=== PATIENT | male | born 1950 | race Caucasian/White ===

== ENCOUNTER 2016-10-03 15:53 | Inpatient (IN) | payer MEDICARE, OTHER ==
[~2016-10-03] VITALS: Ht 175.3 cm; Wt 90.4 kg
[~2016-10-03 15:53] MED LIST: ASPI-515 PO; ATOR20TA PO; ATOR80TA75 PO; IRBE300T16 PO; ISOS30TA8 PO; METF500T4 PO; METO25TA35 PO; PSEU120T44 PO; TICA90TA PO
[2016-10-03] MEDS ORDERED: ASPIRIN 81 MG TABLET CHEW PO ONE (16:30)
[2016-10-03] MEDS ORDERED: SODIUM CHLORIDE FLUSH 10ML SYR IVF ONE (17:00)
[2016-10-03 17:03] LABS: BLOOD UREA NITROGEN 14 mg/dL (7-18)
[2016-10-03 17:10] LABS: ASPARTATE AMINO TRANSFERASE 18 U/L (15-37)
[2016-10-03 17:11] LABS: IS PT STATUS REG ER OR PRE ER? YES
[2016-10-03] MEDS ORDERED: ASPIRIN 81 MG TABLET CHEW ONE (17:23)
[2016-10-03] MEDS ORDERED: OMNIPAQUE 350 MG/ML, 100ML BOTTLE ONE (18:29)
[2016-10-03] MEDS ORDERED: SODIUM CHLORIDE FLUSH 10ML SYR IVF PRN (18:30)
[2016-10-03] MEDS ORDERED: ONDANSETRON ODT 4 MG PO PRN (20:00)
[2016-10-03] MEDS ORDERED: LORazepam 1MG TABLET PO PRN (20:00)
[2016-10-03] MEDS ORDERED: ENOXAPARIN 40 MG/0.4 ML SQ SCH (20:00)
[2016-10-03] MEDS ORDERED: POLYETHYLENE GLYCOL 17 GM PACKET PO PRN (20:00)
[2016-10-03] MEDS ORDERED: ACETAMINOPHEN 325 MG TABLET PO PRN (20:00)
[2016-10-03] MEDS ORDERED: BISACODYL 10 MG SUPP PR PRN (20:00)
[2016-10-03] MEDS ORDERED: LABETALOL 5MG/ML, 20ML IV PRN (20:00)
[2016-10-03] MEDS ORDERED: TRAZODONE 50MG TABLET PO PRN (20:00)
[2016-10-03] MEDS ORDERED: DOCUSATE 100 MG CAPSULE PO PRN (20:00)
[2016-10-03] MEDS ORDERED: GUAIFENESIN/DM 200-20MG, 10ML UDC PO PRN (20:00)
[2016-10-03 20:05] VITALS: BP 124/74
[2016-10-03] MEDS ORDERED: ATORVASTATIN 80 MG TABLET PO SCH (21:00)
[2016-10-03] MEDS: TICAGRELOR 90 MG TABLET PO SCH (22:17)
[2016-10-03] MEDS: METOPROLOL TARTRATE 25 MG TABLET PO SCH (22:17)
[2016-10-03] MEDS: INSULIN ASPART 100 UNITS/ML, PEN SQ-INSULIN SCH (22:18)
[2016-10-03] MEDS: SODIUM CHLORIDE 0.9% 1,000 ML IV SCH (22:26)
[2016-10-03 23:19] LABS: IS PT STATUS REG ER OR PRE ER? NO
[2016-10-04 01:40] VITALS: BP 126/71
[2016-10-04] MEDS: IBUPROFEN 600 MG TABLET PO SCH ×2 (05:54→11:00)
[2016-10-04 06:34] VITALS: BP 114/73
[2016-10-04] MEDS: INSULIN ASPART 100 UNITS/ML, PEN SQ-INSULIN SCH ×2 (07:00→11:00)
[2016-10-04] MEDS: SODIUM CHLORIDE 0.9% 1,000 ML IV SCH (08:08)
[2016-10-04] MEDS: METOPROLOL TARTRATE 25 MG TABLET PO SCH (08:08)
[2016-10-04] MEDS: TICAGRELOR 90 MG TABLET PO SCH (08:08)
[2016-10-04 08:36] LABS: ASPARTATE AMINO TRANSFERASE 13 U/L (15-37); BLOOD UREA NITROGEN 13 mg/dL (7-18)
[2016-10-04 08:46] LABS: IS PT STATUS REG ER OR PRE ER? NO
[2016-10-04] MEDS ORDERED: IRBESARTAN 300 MG TABLET PO SCH (09:00)
[2016-10-04] MEDS ORDERED: ISOSORBIDE MONONITRATE ER 30 MG TABLET PO SCH (09:00)
[2016-10-04] MEDS ORDERED: ASPIRIN 81 MG TABLET EC PO SCH (09:00)
[2016-10-04] MEDS ORDERED: TRAZ50TA18 PO (11:47)
[2016-10-04] MEDS ORDERED: ALPR0.25 PO (11:47)
== END 2016-10-04 13:45 | disposition home or self-care (01) | DRG 887 ==
LOC: ED 18:09 → EDIP 18:10 → ED 18:26 → 5SO 20:08 → DCLOUNGE 10-04 13:42
PROVIDERS: ADMIT Internal Medicine; ATTEND Internal Medicine
DX: G47.00 Insomnia, unspecified (principal); E44.1 Mild protein-calorie malnutrition; E87.1 Hypo-osmolality and hyponatremia; J98.11 Atelectasis; F41.9 Anxiety disorder, unspecified; R74.8 Abnormal levels of other serum enzymes; I71.4 Abdominal aortic aneurysm, without rupture; I25.10 Atherosclerotic heart disease of native coronary artery without angina pectoris; N40.0 Benign prostatic hyperplasia without lower urinary tract symptoms; E11.9 Type 2 diabetes mellitus without complications; E78.5 Hyperlipidemia, unspecified; I10 Essential (primary) hypertension; Z79.82 Long term (current) use of aspirin; Z87.442 Personal history of urinary calculi; Z68.29 Body mass index [BMI] 29.0-29.9, adult; Z87.891 Personal history of nicotine dependence; Z95.5 Presence of coronary angioplasty implant and graft; Z90.89 Acquired absence of other organs; Z88.2 Allergy status to sulfonamides; Z80.9 Family history of malignant neoplasm, unspecified
CPT/HCPCS: 36415; 71010; 71275; 80053; 82962; 84484; 85025; 93005; J1650; Q9967; J7030

== ENCOUNTER 2016-10-14 11:34 | Emergency (ER) | payer MEDICARE, OTHER ==
[~2016-10-14] VITALS: Ht 175.3 cm; Wt 90.0 kg
[~2016-10-14 11:34] MED LIST changes: +ALPR0.25 PO; +TRAZ50TA18 PO
[2016-10-14 11:36] VITALS: BP 123/72
[2016-10-14 12:47] LABS: BLOOD UREA NITROGEN 21 mg/dL (7-18)
[2016-10-14 12:50] LABS: IS PT STATUS REG ER OR PRE ER? YES
[2016-10-14] MEDS ORDERED: PRASUGREL 10 MG TABLET PO ONE (15:00)
== END 2016-10-14 15:19 | disposition home or self-care (01) ==
LOC: ED 13:37
DX: R06.00 Dyspnea, unspecified (principal); I10 Essential (primary) hypertension; E11.9 Type 2 diabetes mellitus without complications; E78.5 Hyperlipidemia, unspecified; I25.10 Atherosclerotic heart disease of native coronary artery without angina pectoris; N40.0 Benign prostatic hyperplasia without lower urinary tract symptoms
CPT/HCPCS: 36415; 71010; 80048; 82040; 84484; 85025; 85610; 85730; 93005

== ENCOUNTER → 2019-07-11 | Outpatient (CLI) | payer MEDICARE ==
[~2019-07-11] MED LIST changes: +ATOR-2 PO; -ATOR80TA75 PO; +METF500T17 PO; -METF500T4 PO; +PSEU120T10 PO; -PSEU120T44 PO; -TRAZ50TA18 PO; +TRAZ50TA66 PO
== END | disposition home or self-care (01) ==
LOC: CFH 11:43
PROVIDERS: ATTEND Internal Medicine Cardiovascular Disease
DX: I25.119 Atherosclerotic heart disease of native coronary artery with unspecified angina pectoris (principal); I71.2 Thoracic aortic aneurysm, without rupture
CPT/HCPCS: 78452; 93017; A9502